=== PATIENT | male | born 1970 | race Two or more races ===

== ENCOUNTER 2023-09-27 16:25 | Emergency (ER) | payer MEDICAID ==
--- NOTE | 2023-09-27 16:57 | ED Physician Documentation ---
PD HPI HEAD INJURY - Stated complaint Stated Complaint: FALL/HEAD INJ - History obtained from History obtained from: Patient - History of Present Illness Mechanism of head injury: Blow Where head injury occurred: Work Timing - onset: Today (several hours ago at 11:30 today.) Location of injury: Left, Back Quality of pain: Throbbing, Aching ( he and others were moving a sink into position and it struck him in back of head by accident, which pushed him foreward and forehead into ground. Pain both areas. Mild bleeding forehead. Has had increasing pain and swelling left occiput scalp over few hours. No concussive symptoms. He kept working.) Associated symptoms: No: LOC, AMS, Nausea / vomiting, Neck pain Symptoms worsen with: Palpation Contributing factors: No: Anticoagulated Similar symptoms before: Has not had sx before Review of Systems Eyes: denies: Loss of vision, Decreased vision, Photophobia GI: denies: Nausea, Vomiting Musculoskeletal: denies: Neck pain Neurologic: denies: Focal weakness, Numbness, Altered mental status, Headache (just soft tissue pain left occiput.) PD PAST MEDICAL HISTORY - Past Medical History Cardiovascular: None Neuro: None - Present Medications Home Medications: Ambulatory Orders Medication Instructions Recorded Confirmed HYDROcod/ACETAM 5/325 [Hollister 5/325] 1 ea PO Q6H PRN #12 tablet 09/27/23 - Allergies Allergies/Adverse Reactions: Allergies Allergy/AdvReac Type Severity Reaction Status Date / Time No Known Drug Allergies Allergy Verified 09/27/23 16:58 PD ED PE NORMAL - Vitals Vital signs reviewed: Yes - General General: Alert and oriented X 3, No acute distress, Well developed/nourished - HEENT HEENT: PERRL, EOMI, Other (right frontal forehead and scalp abrasion with some soft tissue tender and swelling. Left occiput area with moderate swelling that is firm and tender c/w scalp hematoma. ) - Neck Neck: Supple, no meningeal sign, No bony TTP, No adenopathy - Derm Derm: Normal color, Warm and dry - Neuro Neuro: Alert and oriented X 3, stitcher standard machine 2-12 intact, No motor deficit, No sensory deficit, Normal speech, Other (normal gait) Results - Vitals Vitals: Vital Signs - 24 hr 09/27/23 09/27/23 16:52 18:32 Temperature 36.4 C L 37.1 C Heart Rate 63 91 Respiratory 20 20 Rate Blood Pressure 152/93 H 150/87 H O2 Saturation 99 100 Oxygen O2 Source Room air PD Medical Decision Making - ED course Complexity details: considered differential (left scalp hematoma with swelling and soft tissue tender. No diffuse BELTRE and normal neuro. shared decision not to do imaging as not sounding intracrnaial injury. ), d/w patient Departure - Departure Disposition: 01 Home, Self Care Clinical Impression: Scalp hematoma, Contusion of head, Forehead abrasion Condition: Stable Record reviewed to determine appropriate education?: Yes Instructions: ED Hematoma Prescriptions: HYDROcod/ACETAM 5/325 [Hollister 5/325] 1 ea PO Q6H PRN #12 tablet PRN Reason: Pain Comments: You are not having any symptoms of concussion and therefore pretty low likelihood of any fractures or intracranial bleeding. You do have the swelling of the scalp on the back of the head. Likely you had a small blood vessel bleed under the scalp with the injury and created the pressure and swelling. This will be tight and tender initially. You can do some ice or cool towels to the area to try to help with some of the swelling this evening. Tylenol and/or ibuprofen both over the next few days to help with pain. Add hydrocodone every 4-6 hours if needed for worse pain. For the abrasion on the forehead, clean with soap and water once or twice daily and apply ointment. Recheck if signs of infection. I sent your prescription to your preferred pharmacy. Discharge Date/Time: 09/27/23 18:32
[2023-09-27] MEDS: BACITRACIN ZINC OINT 1 PACKET TOP STA (17:31)
[2023-09-27] MEDS: IBUPROFEN 600 MG TABLET PO STA (17:31)
[2023-09-27] MEDS: ACETAMINOPHEN 500 MG TABLET PO STA (17:32)
[2023-09-27] MEDS: LIDOCAINE JELLY 2% 6 ML JEL.PF.APP TOP STA (17:32)
[2023-09-27 18:45] VITALS: BP 150/87; O2SAT 100
== END 2023-09-27 18:32 | disposition home or self-care (01) ==
LOC: ED 16:25
DX: S00.93XA Contusion of unspecified part of head, initial encounter (principal); S00.03XA Contusion of scalp, initial encounter; S00.81XA Abrasion of other part of head, initial encounter; W22.8XXA Striking against or struck by other objects, initial encounter; Y99.0 Civilian activity done for income or pay
CPT/HCPCS: 99283; A9270